=== PATIENT | female | born 1965 | race African-American/Black ===

== ENCOUNTER 2020-12-10 15:55 | Emergency (ER) | payer OTHER ==
[~2020-12-10] VITALS: Ht 167.6 cm; Wt 70.3 kg
[2020-12-10] MEDS ORDERED: MORPHINE SULFATE 4 MG/1 ML DISP.SYRIN IM ONE (16:45)
[2020-12-10] MEDS ORDERED: MORPHINE SULFATE 4 MG/1 ML DISP.SYRIN ONE (16:59)
--- NOTE | 2020-12-10 17:20 | NUR ---
PT CO REDNESS/ITCHING ON THE NECH AND CHEST AREA, REQUESTING BENADRYL. PT SAYS THAT THIS HAS HAPPENED BEFORE
[2020-12-10] MEDS ORDERED: diphenhydrAMINE 50 MG/1 ML VIAL ONE (17:28)
[2020-12-10] MEDS ORDERED: DEXAMETHASONE SOD PHOSPHATE 10 MG INJ ONE (17:29)
[2020-12-10] MEDS ORDERED: DEXAMETHASONE SOD PHOSPHATE 4 MG INJ IM ONE (17:30)
[2020-12-10] MEDS ORDERED: diphenhydrAMINE 50 MG/1 ML VIAL IM ONE (17:30)
--- NOTE | 2020-12-10 18:49 | NUR ---
Patient discharged to home in stable condition. Written and verbal after care instructions given. Patient verbalizes understanding of instructions. Stressed follow up or return to ER for worsening s/s. pt walks in steady gait, redness on the neck and chest area resolved. pt deneis any itching. pt walks in steady gait. pt not driving.
[2020-12-10 18:50] VITALS: BP 141/81
== END 2020-12-10 18:51 | disposition home or self-care (01) ==
LOC: ER 15:55
DX: S13.9XXA Sprain of joints and ligaments of unspecified parts of neck, initial encounter (principal); V43.62XA Car passenger injured in collision with other type car in traffic accident, initial encounter; Y92.414 Local residential or business street as the place of occurrence of the external cause; R03.0 Elevated blood-pressure reading, without diagnosis of hypertension; Z88.6 Allergy status to analgesic agent; Z88.0 Allergy status to penicillin; Z88.8 Allergy status to other drugs, medicaments and biological substances
CPT/HCPCS: 72050; 96372 ×2; 99284; J1200; J2270; A4663; J1100